=== PATIENT | female | born 1990 | race Hispanic/Latino ===

== ENCOUNTER 2019-08-15 05:20 | Inpatient (IN) | payer MEDICAID ==
[~2019-08-15] VITALS: Ht 160 cm; Wt 85.7 kg
[~2019-08-15 05:20] MED LIST: PNV1TABL77 PO
[2019-08-15] MEDS ORDERED: LACTATED RINGERS 1000ML 1,000 ML IV PRN (05:30)
[2019-08-15] MEDS ORDERED: OXYTOCIN-LR 20 UNITS/1000 ML 1,000 ML IV SCH ×2 (05:30→08:00)
[2019-08-15] MEDS ORDERED: OXYTOCIN 10 USP UNITS/ML 20 UNIT in LACTATED RINGERS 1000ML 1,000 ML IV SCH (06:00)
[2019-08-15 06:27] LABS: HEMATOCRIT 34.5 % (36-48); MEAN CORPUSCULAR HEMOGLOBIN 26.6 pg (27.0-33.0); MEAN CORPUSCULAR VOLUME 80.8 fL (79-99); PLATELET COUNT (AUTO) 241 K/uL (130-400); RED BLOOD CELL COUNT(AUTO) 4.27 MIL/uL (4.00-5.50); RED CELL DISTRIBUTION WIDTH 14.4 % (11.0-15.5); WHITE BLOOD COUNT (AUTO) 9.7 K/uL (4.8-10.8)
[2019-08-15 06:41] LABS: APPEARANCE,URINE CLEAR (CLEAR); BILIRUBIN,URINE NEGATIVE (NEGATIVE); COLOR,URINE YELLOW (YELLOW); GLUCOSE, URINE (UA) NEGATIVE (NEGATIVE); KETONES,URINE NEGATIVE (NEGATIVE); LEUKOCYTE ESTERASE ,URINE TRACE (NEGATIVE); NITRATE,URINE NEGATIVE (NEGATIVE); OCCULT BLOOD,URINE NEGATIVE (NEGATIVE); PH,URINE 6.5 (5.0-8.0); PROTEIN,URINE NEGATIVE (NEGATIVE); UROBILINOGEN,URINE 0.2 mg/dL (0.2-1.0)
[2019-08-15 07:00] LABS: BACTERIA,URINE Few /HPF (None Seen); RBC,URINE 0-1 /HPF (0-1); SQUAMOUS EPITHELIAL CELL,UR Few /HPF (0-2)
[2019-08-15] MEDS ORDERED: PROMETHAZINE HCL 25 MG/ML 1ML AMPULE IM SCH (07:45)
[2019-08-15] MEDS ORDERED: MEPERIDINE-PF 50 MG/ML SYG IVP PRN (07:45)
[2019-08-15] MEDS ORDERED: FLU VACC QS2019-20 36MOS UP/PF 60 MCG/0.5 ML ML IM SCH ×2 (09:00→11:45)
[2019-08-15] MEDS ORDERED: WITCH HAZEL 1 PAD TP PRN (09:45)
[2019-08-15] MEDS ORDERED: ACETAMINOPHEN-CODEINE 300/30MG TAB PO PRN (09:45)
[2019-08-15] MEDS ORDERED: ACETAMINOPHEN 325 MG TAB PO PRN (09:45)
[2019-08-15] MEDS ORDERED: DIPH,PERTUSS(ACELL),TET VAC/PF 0.5 ML VIAL IM PRN (09:45)
[2019-08-15] MEDS ORDERED: BENZOCAINE/LANOLIN/ALOE VERA 60 ML AEROSOL TP PRN (09:45)
[2019-08-15] MEDS ORDERED: LANOLIN 30GM OINTMENT TP PRN (09:45)
[2019-08-15] MEDS: IBUPROFEN 600 MG TABLET PO PRN ×2 (12:30→21:10)
[2019-08-15 12:49] VITALS: BP 121/70
--- NOTE | 2019-08-15 15:25 | NUR ---
FLU VACCINE FLU VACCINE ADMINISTERED TO RIGHT DELTOID PER ASEPTIC TECHNIQUE, TOLERATED WELL. LOT NUMBER [id number]
--- NOTE | 2019-08-15 15:30 | NUR ---
TDAP VACCINE TDAP VACCINE ADMINISTERED PER PT REQUEST TO LEFT DELTOID PER ASEPTIC TECHNIQUE, TOLERATED WELL. LOT NUMBER [id number]/ EXPIRATION DATE JUNE 07 2021
[2019-08-15 16:42] VITALS: BP 112/72
[2019-08-15 20:30] VITALS: BP 119/65
[2019-08-15] MEDS: DOCUSATE SODIUM 100 MG CAP PO SCH (21:09)
[2019-08-16] VITALS: BP 125/71
[2019-08-16 03:50] VITALS: BP 98/45
[2019-08-16] MEDS: IBUPROFEN 600 MG TABLET PO PRN ×2 (04:00→11:43)
[2019-08-16 05:12] LABS: HEMATOCRIT 29.2 % (36-48); MEAN CORPUSCULAR HEMOGLOBIN 27.7 pg (27.0-33.0); MEAN CORPUSCULAR HGB CONC 33.7 g/dL (32.0-36.0); MEAN CORPUSCULAR VOLUME 82.1 fL (79-99); PLATELET COUNT (AUTO) 178 K/uL (130-400); RED BLOOD CELL COUNT(AUTO) 3.56 MIL/uL (4.00-5.50); RED CELL DISTRIBUTION WIDTH 14.2 % (11.0-15.5); WHITE BLOOD COUNT (AUTO) 9.2 K/uL (4.8-10.8)
[2019-08-16 07:15] LABS: HEPATITIS Bs ANTIGEN SCREEN P Negative (Negative)
[2019-08-16] MEDS: DOCUSATE SODIUM 100 MG CAP PO SCH (09:04)
--- NOTE | 2019-08-16 09:21 | NUR ---
HX OF BIPOLAR, DEPRESSION AND ANXIETY TEEN Sw met with pt who states she lives with Eric Castro and their 4 kids, 10,9,3, and NB Roque Castro. 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 works at [employer]. Couple has basic items for NB, including car seat and Dr Christopher Rodriguez will follow baby at dc. Pt reports she has good family support system - mother Génesis Godinez [phone]. Pt reports hx of Bipolar depression and anxiety as a teen that was dx by [facility]. Pt reports no mental health issues in her adult life and denies any during . pt denies hx of ideations, suicide attempts or post depression. Encourage pt to contact MD or OB if she starts to experience any changes in behavior or mood after dc. pt denies need for referral or intervention at this time Addendum: 08/16/19 at 0933 by AKIKO MATHIAS Amended: Links added.
[2019-08-16 11:09] VITALS: BP 117/68
--- NOTE | 2019-08-16 12:35 | NUR ---
ROBINA S.KAE ROUNDING ON PATIENT. NEW ORDERS RECEIVED. PATIENT OKAY FOR DISCHARGE.
--- NOTE | 2019-08-16 12:58 | NUR ---
INSTRUCTIONS DISCHARGE INSTRUCTIONS READ AND EXPLAINED TO PATIENT. NO NEW PRESCRIPTIONS. QUESTIONS INVITED AND ANSWERED.
--- NOTE | 2019-08-16 13:15 | NUR ---
DISCHARGE PATIENT LEFT UNIT VIA WHEELCHAIR WITH BABY IN ARMS ACCOMPANIED BY FAMILY. PERSONAL VEHICLE USED FOR TRANSPORTATION. BABY SECURE IN CARSEAT.
== END 2019-08-16 13:15 | disposition home or self-care (01) | DRG 560 ==
LOC: INTOOBSV 05:20 → OBSVTOIN 05:20 → LDH 05:20 → WSH 11:20 → PREOBSVTOIN 08-28 05:17
PROVIDERS: ADMIT Obstetrics & Gynecology; ATTEND Obstetrics & Gynecology
PROC: 10E0XZZ Delivery of Products of Conception, External Approach (ICD-10-PCS; principal; 2019-08-15)
PROC: 10907ZC Drainage of Amniotic Fluid, Therapeutic from Products of Conception, Via Natural or Artificial Opening (ICD-10-PCS; 2019-08-15)
PROC: 3E0234Z Introduction of Serum, Toxoid and Vaccine into Muscle, Percutaneous Approach (ICD-10-PCS; 2019-08-15)
DX: O69.81X0 Labor and delivery complicated by cord around neck, without compression, not applicable or unspecified (principal); Z37.0 Single live birth; Z23 Encounter for immunization; Z3A.38 38 weeks gestation of pregnancy
CPT/HCPCS: 36415; 81001; 85027; 86592; 86850; 86900; 86901; 87340; 90715; G0378; J2175; J2550; J2590